=== PATIENT | female | born 1995 | race Caucasian/White ===

== ENCOUNTER 2020-04-01 22:44 | Emergency (ER) | payer BC, OTHER ==
[2020-04-01] MEDS ORDERED: NA CHLORIDE 0.9% 1,000 ML ONE (23:28)
[2020-04-01 23:30] LABS: Urine Blood 2+ (NEG); Urine Glucose NEGATIVE (NEG); Urine Protein NEGATIVE (NEG); Urine Specific Gravity >1.030 (1.005-1.030)
[2020-04-01 23:34] LABS: Absolute Lymphocytes (CBC) 3.5 K/uL (0.7-4.9); Basophils % 0.9 % (0-1.3); Hematocrit 38.8 % (36.0-45.0); Lymphocytes % 33.2 % (15.3-44.8); MPV 9.5 fL (7.6-11.3); RBC Red Blood Cell Count 4.62 M/uL (3.86-4.86)
[2020-04-02 00:08] LABS: BUN Blood Urea Nitrogen 9 mg/dL (7-18); Bicarbonate 29 mmol/L (21-32); Glucose Level 99 mg/dL (74-106); HCG, Quantitative 14554 mIU/mL (1-3); Potassium 3.7 mmol/L (3.5-5.1); Sodium Level 139 mmol/L (136-145)
--- NOTE | 2020-04-02 00:11 | EDPHYS ---
Physician Documentation [facility] Name: Roseline Roman Age: 24 yrs Sex: Female : 1995 Arrival Date: 04/01/2020 Time: 22:46 Bed 5 Private MD: Rosey Miguel ED Physician Kendell Beaver HPI: 04/01 23:54 This 24 yrs old Female presents to ER via Ambulatory with complaints of scotty Vaginal Bleeding, + Preg <12wks. 23:54 The patient presents to the emergency department with vaginal bleeding. The estimated [facility] gestational age is 4 weeks. course: care: none. Associated signs and symptoms: The patient has no apparent associated signs or symptoms. 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 - Social history:: Smoking status: Patient denies any tobacco usage or history of. ROS: 23:55 Constitutional: Negative for fever, chills, and weight loss, Eyes: Negative for injury, scotty pain, redness, and discharge, ENT: Negative for injury, pain, and discharge, Neck: Negative for injury, pain, and swelling, Cardiovascular: Negative for chest pain, palpitations, and edema, Respiratory: Negative for shortness of breath, cough, wheezing, and pleuritic chest pain, Abdomen/GI: Negative for abdominal pain, nausea, vomiting, diarrhea, and constipation, Back: Negative for injury and pain, MS/Extremity: Negative for injury and deformity, Skin: Negative for injury, rash, and discoloration, Neuro: Negative for headache, weakness, numbness, tingling, and seizure, Psych: Negative for depression, anxiety, suicide ideation, homicidal ideation, and hallucinations, Allergy/Immunology: Negative for hives, rash, and allergies, Endocrine: Negative for neck swelling, polydipsia, polyuria, polyphagia, and marked weight changes, Hematologic/Lymphatic: Negative for swollen nodes, abnormal bleeding, and unusual bruising. 23:55 : Positive for vaginal bleeding. Exam: 23:55 Constitutional: This is a well developed, well nourished patient who is awake, alert, scotty and in no acute distress. Head/Face: Normocephalic, atraumatic. Eyes: Pupils equal round and reactive to light, extra-ocular motions intact. Lids and lashes normal. Conjunctiva and sclera are non-icteric and not injected. Cornea within normal limits. Periorbital areas with no swelling, redness, or edema. ENT: Nares patent. No nasal discharge, no septal abnormalities noted. Tympanic membranes are normal and external auditory canals are clear. Oropharynx with no redness, swelling, or masses, exudates, or evidence of obstruction, uvula midline. Mucous membranes moist. Neck: Trachea midline, no thyromegaly or masses palpated, and no cervical lymphadenopathy. Supple, full range of motion without nuchal rigidity, or vertebral point tenderness. No Meningismus. Chest/axilla: Normal chest wall appearance and motion. Nontender with no deformity. No lesions are appreciated. Cardiovascular: Regular rate and rhythm with a normal S1 and S2. No gallops, murmurs, or rubs. Normal PMI, no JVD. No pulse deficits. Respiratory: Lungs have equal breath sounds bilaterally, clear to auscultation and percussion. No rales, rhonchi or wheezes noted. No increased work of breathing, no retractions or nasal flaring. Abdomen/GI: Soft, non-tender, with normal bowel sounds. No distension or tympany. No guarding or rebound. No evidence of tenderness throughout. Back: No spinal tenderness. No costovertebral tenderness. Full range of motion. Skin: Warm, dry with normal turgor. Normal color with no rashes, no lesions, and no evidence of cellulitis. MS/ Extremity: Pulses equal, no cyanosis. Neurovascular intact. Full, normal range of motion. Neuro: Awake and alert, GCS 15, oriented to person, place, time, and situation. Cranial nerves II-XII grossly intact. Motor strength 5/5 in all extremities. Sensory grossly intact. Cerebellar exam normal. Normal gait. Psych: Awake, alert, with orientation to person, place and time. Behavior, mood, and affect are within normal limits. Vital Signs: 23:03 BP 124 / 66; Pulse 94; Resp 18; Temp 98(TE); Pulse Ox 100% on R/A; Weight 123.38 kg lp1 (R); Height 5 ft. 6 in. (167.64 cm); Pain 01/07; 04/02 00:30 BP 122 / 72; Pulse 91; Resp 16 S; Temp 98.3(O); Pulse Ox 100% on R/A; bb 04/01 23:03 Body Mass Index 43.90 (123.38 kg, 167.64 cm) lp1 MDM: 04/01 23:08 Patient medically screened. [facility] 23:56 Differential diagnosis: threatened Ab, missed Ab. Data reviewed: vital signs, nurses [facility] notes, lab test result(s), radiologic studies, ultrasound. Data interpreted: quality assurance monitor body: rate is 94 beats/min, rhythm is regular. Counseling: I had a detailed discussion with the patient and/or guardian regarding: the historical points, exam findings, and any diagnostic results supporting the discharge/admit diagnosis, lab results, radiology results, the need for outpatient follow up, for definitive care, an OB/Gyne specialist. 04/01 23:10 Order name: Quantitative Hcg; Complete Time: 00:10 [facility] 04/01 23:10 Order name: Abo/rh Typing [facility] 04/01 23:10 Order name: Basic Metabolic Panel; Complete Time: 00:10 [facility] 04/01 23:10 Order name: CBC with Diff; Complete Time: 23:54 [facility] 04/01 23:10 Order name: Urine Culture [facility] 04/01 23:29 Order name: Urine Dipstick--Ancillary (enter results); Complete Time: 23:54 ar5 04/01 23:10 Order name: Urine Test (obtain specimen); Complete Time: 23:26 [facility] 04/01 23:10 Order name: IV Saline Lock; Complete Time: 23:44 [facility] 04/01 23:10 Order name: Labs collected and sent; Complete Time: 23:44 [facility] 04/01 23:10 Order name: NPO; Complete Time: 23:44 [facility] 04/01 23:10 Order name: Urine Dipstick-Ancillary (obtain specimen); Complete Time: 23:26 [facility] 04/01 23:10 Order name: US Transvaginal Ob [facility] 04/01 23:29 Order name: Urine --Ancillary (enter results); Complete Time: 23:54 ar5 Administered Medications: 23:40 Drug: NS 0.9% 1000 ml Route: IV; Rate: 1 bolus; Site: right antecubital; lp1 04/02 00:30 Follow up: IV Status: Order to discontinue infusion; IV Intake: 100ml bb Disposition: 04/02/20 00:10 Discharged to Home. Impression: Threatened . - Condition is Stable. - Discharge Instructions: Threatened Miscarriage, Vaginal Bleeding During , First Trimester, First Trimester of , [id number], First Trimester of , Threatened Miscarriage, [id number]-[id number], Pelvic Rest. - Prescriptions for Vitamin 27- 0.8 mg Oral Tablet - take 1 tablet by ORAL route once daily; 30 tablet. - Medication Reconciliation Form, Thank You Letter, Antibiotic Education, Prescription Opioid Use form. - Follow up: Rosey Miguel; When: 2 - 3 days; Reason: Recheck today's complaints, Continuance of care, Re-evaluation by your physician. Follow up: Michael Zuleta; When: 2 - 3 days; Reason: Recheck today's complaints, Re-evaluation by your physician. - Problem is new. - Symptoms have improved. Signatures: Dispatcher [employer] EDKS Kendell Beaver MD MD cha Ballard, Brenda RN RN bb Patricia Juarez RN RN lp1 Corrections: (The following items were deleted from the chart) 00:32 00:10 04/02/2020 00:10 Discharged to Home. Impression: Threatened . Condition bb is Stable. Discharge Instructions: Threatened Miscarriage, Vaginal Bleeding During , First Trimester, First Trimester of , Mhsq-da-Jlam, First Trimester of , Threatened Miscarriage, Xnlc-rq-Char, Pelvic Rest. Prescriptions for Vitamin 27-0.8 mg Oral Tablet - take 1 tablet by ORAL route once daily; 30 tablet. and Forms are Medication Reconciliation Form, Thank You Letter, Antibiotic Education, Prescription Opioid Use. Follow up: Rosey Miguel; When: 2 - 3 days; Reason: Recheck today's complaints, Continuance of care, Re-evaluation by your physician. Follow up: Michael Zuleta; When: 2 - 3 days; Reason: Recheck today's complaints, Re-evaluation by your physician. Problem is new. Symptoms have improved. scotty
--- NOTE | 2020-04-02 00:11 | ER ---
Nurse's Notes [facility] Name: Roseline Roman Age: 24 yrs Sex: Female : 1995 Arrival Date: 04/01/2020 Time: 22:46 Bed 5 Private MD: Rosey Miguel Diagnosis: Threatened Presentation: 04/01 23:03 Chief complaint: Patient states: Vaginal bleeding that began 1 hour ago with pelvic lp1 cramping; States unknown gestation of , ultrasound on 04/29/20 was abnormal per patient, scheduled for blood work tomorrow morning. Coronavirus screen: Client denies travel out of the [place] in the last 14 days. At this time, the client does not indicate any symptoms associated with coronavirus-19. Ebola Screen: No symptoms or risks identified at this time. Initial Sepsis Screen: Does the patient meet any 2 criteria? No. Patient's initial sepsis screen is negative. Does the patient have a suspected source of infection? No. Patient's initial sepsis screen is negative. Risk Assessment: Do you want to hurt yourself or someone else? Patient reports no desire to harm self or others. Onset of symptoms was April 01, 2020 at 22:00. 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 - Social history:: Smoking status: Patient denies any tobacco usage or history of. Screenin:09 Abuse screen: Denies threats or abuse. Denies injuries from another. Nutritional lp1 screening: No deficits noted. Tuberculosis screening: No symptoms or risk factors identified. Fall Risk None identified. Assessment: 23:07 Obstetrical Assessment: General assessment: awake and alert, skin warm and dry, Patient lp1 reports abdominal cramping. General: Appears in no apparent distress. Behavior is calm, cooperative, appropriate for age. Pain: Complains of pain in suprapubic area Pain currently is 6 out of 10 on a pain scale. Neuro: Level of Consciousness is awake, alert, obeys commands. Cardiovascular: Patient's skin is warm and dry. Respiratory: Respiratory effort is even, unlabored. GI: Abdomen is non-distended, Reports lower abdominal pain. : Reports vaginal bleeding that is bright red, light flow. EENT: No signs and/or symptoms were reported regarding the EENT system. Derm: Skin is pink, warm \T\ dry. Musculoskeletal: No deficits noted. 23:36 Reassessment: Ultrasound at bedside. lp1 04/02 00:29 Reassessment: Patient is alert, oriented x 3, equal unlabored respirations, skin bb warm/dry/pink. pt verbalized understanding of and agrees to plan of care discharge instructions given pt ambulated with steady gait to exit accompanied by family. Vital Signs: 04/01 23:03 BP 124 / 66; Pulse 94; Resp 18; Temp 98(TE); Pulse Ox 100% on R/A; Weight 123.38 kg lp1 (R); Height 5 ft. 6 in. (167.64 cm); Pain 7/10; 10 00:30 BP 122 / 72; Pulse 91; Resp 16 S; Temp 98.3(O); Pulse Ox 100% on R/A; bb 04/01 23:03 Body Mass Index 43.90 (123.38 kg, 167.64 cm) lp1 Vitals: 00:31 Heart Tones no heart tones determined by field service technician. bb ED Course: 04/01 22:46 Patient arrived in ED. am2 22:47 Rosey Miguel MD is Private Physician. am2 23:03 Patricia Juarez, JAVIER is Primary Nurse. lp1 23:05 Triage completed. lp1 23:05 Arm band placed on. lp1 23:08 Kendell Beaver MD is Attending Physician. scotty 23:09 Patient has correct armband on for positive identification. Placed in gown. lp1 23:30 Inserted saline lock: 20 gauge in right antecubital area, using aseptic technique. oe Blood collected. 23:44 US Transvaginal Ob In Process Unspecified. EDMS 04/02 00:10 Rosey Miguel MD is Referral Physician. [facility] 00:10 Michael Zuleta MD is Referral Physician. [facility] 00:30 IV discontinued, intact, bleeding controlled, No redness/swelling at site. Pressure bb dressing applied. 00:31 No provider procedures requiring assistance completed. bb Administered Medications: 04/01 23:40 Drug: NS 0.9% 1000 ml Route: IV; Rate: 1 bolus; Site: right antecubital; lp1 04/02 00:30 Follow up: IV Status: Order to discontinue infusion; IV Intake: 100ml bb Intake: 00:30 IV: 100ml; Total: 100ml. bb Outcome: 00:10 Discharge ordered by . [facility] 00:31 Discharged to home ambulatory, with family. bb 00:31 Condition: stable 00:31 Discharge instructions given to patient, Instructed on discharge instructions, follow up and referral plans. medication usage, Demonstrated understanding of instructions, follow-up care, medications, Prescriptions given X 1. 00:32 Patient left the ED. bb Signatures: Dispatcher [employer] EDOK Kendell Beaver MD MD cha Ballard, Brenda RN RN bb Patricia Juarez, RN RN lp1 Srikanth Villafana Amanda am2
[2020-04-02 01:09] VITALS: O2SAT 100
[2020-04-02 01:10] VITALS: BP 122/72; TEMP 98.3
--- NOTE | 2020-04-02 10:33 | RAD REPORT ---
EXAM DESCRIPTION: US - Transvaginal OB - 04/01/2020 11:44 pm CLINICAL HISTORY: with pelvic pain COMPARISON: None. FINDINGS: The uterus measures 11 x 6 x 6 centimeters. A gestational sac measuring 1.2 centimeters i s present within the uterine body. A pole is not seen. A small subchorionic bleed is present. Right and left ovary not visualized secondary to overlying bowel gas. Right and left adnexal unremark able No significant free fluid is seen. IMPRESSION: Intrauterine with an estimated gestational age 6 weeks 4 days SISSY 11/23/2020 The gestational sac lies within the uterine body. It is recommended that the patient have a followup endovaginal sonogram in 1 week for re-evaluation Small subchorionic bleed
--- OUTSIDE RECORDS SUMMARY | 2020-04-06 22:13 | XMS REPORT | Summary of Care ---
:1995 Author Organization [facility] - Health Address [address] [place] [id number] Care Team Providers Name Role Phone Rickey Roche Unavailable Rickey Roche Primary Care Provider Encounter Details Date Type Department Care Team Description 03/15/2020 Orders Only [facility] Doctor Unassigned, No [address] [facility] [place] [address] [address] [place] [address] Allergies No Known Allergiesdocumented as of this encounter (statuses as of 03/15/2020) Medications No known medicationsdocumented as of this encounter (statuses as of 03/15/2020) Active Problems Not on filedocumented as of this encounter (statuses as of 03/15/2020) Social History Tobacco Use Types Packs/Day Years Used Date Former Smoker Cigarettes 07/01/2012 - 0 07/01/2013 Sex Assigned at Date Recorded Not on file COVID-19 Exposure Response Date Recorded In the last month, have you been in contact with No / Unsure 03/15/2020 1:52 PM CDT someone who was confirmed or suspected to have Coronavirus / COVID-19? documented as of this encounter Last Filed Vital Signs Not on filedocumented in this encounter Plan of Treatment Date Type Specialty Care Team Description 03/15/2020 Initial Obstetrics & Munoz, Marley Delvalle MD Visit Gynecology [address] [place] [address] [address] [place] [address] Health Maintenance Due Date Last Done Comments VARICELLA VACCINES (/13/1996 2-dose childhood series) HPV VACCINES (1 - 2-dose series) 2005 Depression Screening 2006 DTaP,Tdap,and Td Vaccines (1 - 2013 Tdap) PAP SMEAR 2015 INFLUENZA VACCINE (#1) 2020 PNEUMOCOCCAL 0-64 YEARS COMBINED Aged Out No longer eligible based on SERIES patient's age to complete this topic documented as of this encounter Procedures Procedure Name Priority Date/Time Associated Diagnosis Comme nts ASSIGNMENT OF BENEFITS Routine 03/15/2020 1:56 PM CDT documented in this encounter Results Not on filedocumented in this encounter Insurance Payer Benefit Plan Subscriber ID Effective Dates Phone Address Type / Group BCBS [facility] [id number] 2016-Alfredo [phone] [address] [place] PPO/POS [place] - OUT OF t 7 [id number] [place] [address] documented as of this encounter Advance Directives Name Relationship Healthcare Agent Relationship Co mmunication Mike Worthy Other Health Care Agent
--- OUTSIDE RECORDS SUMMARY | 2020-04-06 22:13 | XMS REPORT | Continuity of Care Document ---
:[address] [facility] t Address [address] [place] [address] Care Team Providers Name Role Phone Mook Munoz MD Attending Clinician Doctor Unassigned, Name Attending Clinician Unavailable Problems Condition Condition Condition Status Onset Resolution Last Treating Co mments Source Name Details Category Date Date Treatment Clinician Date Anxiety Anxiety Problem Active [facility] Major Major Problem Active [facility] depressive depressive Marita kes - disorder, disorder, [facility] single single l episode, episode, Outpat i unspecifie unspecifie en t d d Clinics Seasonal Seasonal Problem Active [facility] allergies allergies [facility] Bipolar Bipolar Problem Active [facility] disorder [facility] Acute Acute Problem Active [facility] sinusitis, sinusitis, Marita kes - unspecifie unspecifie Me moria d d l [facility] ent Clinics Other Other Problem Active [facility] specified specified Luke s - bacterial bacterial Freeman clare agents as agents as l the cause the cause Outp ati of of ent diseases diseases Clinic s classified classified elsewhere elsewhere Body mass Body mass Problem Active [facility] index index Lukes - (BMI) of (BMI) of Memori a 40.1 to 40.1 to l 44.9 in 44.9 in [facility] adult adult ent Clinics Allergies, Adverse Reactions, Alerts This patient has no known allergies or adverse reactions. Medications Ordered Filled Start Stop Current Ordering Indication Dosage Frequency Signature Comments Components Source Medication Medication Date Date Medication? Clinician (SIG) Name Name Zoloft Zoloft Yes Na Miguel [address] [facility] Procedures This patient has no known procedures. Encounters Start End Encounter Admission Attending Care Care Encounter Source Date/Time Date/Time Type Type Clinicians Facility Department ID 2020-03-30 2020-03-30 Routine Marley Munoz [facility] [id number] 16:06:37 17:18:58 Cam Moshe [id number] Visit [place] [id number] Professio [id number] [address] 2020-03-30 2020-03-30 Orders Doctor MYKEL [id number] 00:00:00 00:00:00 Only Unassigned, DEDE [id number] [facility] [id number] 2020-03-18 2020-03-18 Telephone Marley Munoz [facility] [id number] 00:00:00 00:00:00 [place] [id number] [place] [id number] Professio [id number] [address] 2019-09-01 2019-09-01 [facility] [id number] 10:00:00 10:00:00 [place] [facility] 2019-01-12 2019-01-12 [facility] [id number] 15:20:00 15:20:00 [facility] [employer] [facility] Outpati ent Clinics 2018-09-23 2018-09-23 [facility] [id number] [facility] 15:15:00 15:15:00 [facility] [employer] [facility] Outpat[facility] ent Clinics 2018-06-11 2018-06-11 [facility] [id number] 14:45:00 14:45:00 [facility] [employer] [facility] Results This patient has no known results.
--- OUTSIDE RECORDS SUMMARY | 2020-04-06 22:13 | XMS REPORT | Summary of Care ---
:1995 Author Organization [facility] - Health Address [address] [place] [id number] Care Team Providers Name Role Phone Rickey Roche Unavailable Rickey Roche Primary Care Provider Reason for Visit Reason Comments New OB Visit POSITIVE HOME TEST Encounter Details Date Type Department Care Team Description 03/15/2020 Initial [facility]oz, Marley Olmos am, MD [address] [place] [address] [id number] Visit Healthcare- Emi Enamorado PA-C [address] [place] [phone] examination or test, [place] positive result [address] [place] [address] (Primary D x) [facility], [address] [place] [address] Allergies No Known Allergiesdocumented as of this encounter (statuses as of 03/15/2020) Medications Medication Sig Dispensed Refills Start Date End Date Status sertraline HCl Take 50 mg by 0 A ctive (SERTRALINE ORAL) mouth. Take by mouth. 0 Acti ve vit,calc76/iron/folic (PNV 29-1 ORAL) documented as of this encounter (statuses as of 03/15/2020) Active Problems Problem Noted Date Morbid obesity with body mass index of 40.0-49.9 03/15 Comments Yes documented as of this encounter (statuses as of 03/15/2020) Social History Tobacco Use Types Packs/Day Years Used Date Former Smoker Cigarettes 07/01/2012 - 0 07/01/2013 Smokeless Tobacco: Never Used Alcohol Use Drinks/Week oz/Week Comments Not Currently Comments Yes Sex Assigned at Date Recorded Not on file COVID-19 Exposure Response Date Recorded In the last month, have you been in contact with No / Unsure 03/15/2020 1:52 PM CDT someone who was confirmed or suspected to have Coronavirus / COVID-19? documented as of this encounter Last Filed Vital Signs Vital Sign Reading Time Taken Comments Blood Pressure 129/88 03/15/2020 2:14 PM CDT Pulse 99 03/15/2020 2:11 PM CDT Temperature 37.1 C (98.7 F) 03/15/2020 2:11 PM CDT Respiratory Rate 18 03/15/2020 2:11 PM CDT Oxygen Saturation - - Inhaled Oxygen Concentration - - Weight 122 kg (269 lb) 03/15/2020 2:11 PM CDT Height 165.1 cm (5' 5") 03/15/2020 2:11 PM CDT Body Mass Index 44.76 03/15/2020 2:11 PM CDT documented in this encounter Progress Notes Emi Enamorado PA-C - 03/15/2020 2:00 PM CDT Chief complaint: Chief Complaint Patient presents with New OB Visit POSITIVE HOME TEST HPI Roseline Carranza is a 24 year old female coming to est care after having a positive test at home. She has no complaints and reports is doing well. Patient denies any abnormal/pelvic pain, discharge, dysuria, hematuria, abnormal bleeding. Patient reports she tested UPT on 02/26 andit was positive. Patient has unknown LMP due to recently getting nexplanon removed on 12/30/2019. Patient reports this was a planned . Histories OB History Para Term AB Living 3 2 2 2 SAB TAB Ectopic Multiple Live Births 2 # Outcome Date GA Lbr Bentley/2nd Weight Sex Delivery Anes PTL Lv 3 Current 2 Term 07/03/17 6 lb 4 oz (2.835 kg) M Vag-Spont MIGUEL 1 Term 03/30/16 8 lb 2 oz (3.685 kg) M Vag-Spont MIGUEL Past Medical History: Diagnosis Date Anxiety Depression Family History Problem Relation Age of Onset Breast Cancer Maternal Grandmother Colon Cancer Maternal Grandmother Family Status Relation Name Status Mo Alive Fa Alive MGMo (Not Specified) History reviewed. No pertinent surgical history. Social History Socioeconomic History Marital status: Single Spouse name: Not on file Number of children: Not on file Years of education: Not on file Highest education level: Not on file Occupational History Not on file Social Needs Financial resource strain: Not on file Food insecurity Worry: Not on file Inability: Not on file Transportation needs Medical: Not on file Non-medical: Not on file Tobacco Use Smoking status: Former Smoker Types: Cigarettes Start date: 07/01/2012 Quit date: 07/01/2013 Years since quittin.7 Smokeless tobacco: Never Used Substance and Sexual Activity Alcohol use: Not Currently Drug use: Never Sexual activity: Yes Partners: Male control/protection: None Lifestyle Physical activity Days per week: Not on file Minutes per session: Not on file Stress: Not on file Relationships Social connections Talks on phone: Not on file Gets together: Not on file Attends scientology service: Not on file Active member of club or organization: Not on file Attends meetings of clubs or organizations: Not on file Relationship status: Not on file Intimate partner violence Fear of current or ex partner: Not on file Emotionally abused: Not on file Physically abused: Not on file Forced sexual activity: Not on file Other Topics Concern Not on file Social History Narrative Not on file Social History Substance and Sexual Activity Sexual Activity Yes Partners: Male control/protection: None Genetic Screen Autism / Mental Retardation: No Zhou Disease: No Congenital Heart Defect: (!) Yes(cousin maternal) Cystic Fibrosis: No Down Syndrome: No Familial Dysautonomia: No Hemophilia or other Blood Disorders: No Kleberg Chorea: No Maternal Metabolic Disorder--specify (eg. Type 1 Diabetes, PKU): No Muscular Dystrophy: No Neural Tube Defect: No Recurrent Loss or a Stillbirth: No Sickle Cell Disease or Trait: No Clarence Sachs: No Teratological Substances (specify type & strength/dose) since LMP: No Thalassemia: No Other Inherited Genetic or Chromosomal Disorder (specify): No Defects Not Listed (specify): (Cousin, turners syndrome) Labs none Radiology none Allergies Roseline has No Known Allergies. Medications Roseline has a current medication list which includes the following prescription(s): vit,calc76/iron/folic and sertraline hcl. Review of Systems Constitutional: Negative for appetite change, fatigue, fever, unexpected weight change, weight gain and weight loss. HENT: Negative for rhinorrhea and sore throat. Eyes: Negative for pain and itching. Respiratory: Negative for cough, chest tightness and shortness of breath. Breasts: Negative for discharge, mass and pain. Cardiovascular: Negative for chest pain, palpitations and leg swelling. Gastrointestinal: Negative for abdominal pain, constipation, diarrhea and nausea. Genitourinary: Negative for bladder incontinence, dysuria, vaginal discharge, difficulty urinating, vaginal pain and pelvic pain. Musculoskeletal: Negative for gait problem and myalgias. Skin: Negative for rash. Neurological: Negative for dizziness and headaches. Psychiatric/Behavioral: Negative for suicidal ideas. The patient is not nervous/anxious. Endocrine: Negative for hair loss, weight gain and weight loss. BP 129/88 | Pulse 99 | Temp 37.1 C (98.7 F) (Oral) | Resp 18 | Ht 5' 5" (1.651 m) | Wt 269 lb (122 kg) | BMI 44.76 kg/m Pregravid BMI: Could not be calculated Physical Exam Vitals reviewed. Constitutional: She is oriented to person, place, and time. Her body habitus is obese. Neck: No mass. No thyromegaly palpated. No neck adenopathy. Cardiovascular: Regular rate and rhythm. Pulmonary/Chest: Normal inspiratory effort. Abdominal: Abdomen is soft. No tenderness present. No hernia palpated or inspected. Neuro/Psychiatric: She has a normal mood and affect. She is oriented to person, place, and time. Skin: Skin normal. Lymphadenopathy: No neck adenopathy present. No axillary adenopathy present. No inguinal adenopathy present. Breast: Right breast exhibits no mass, no nipple discharge and no tenderness. Left breast exhibits no mass, no nipple discharge and no tenderness. Breasts are symmetrical. Normal left breast and normalright breast External genitalia: Normal external genitalia appropriate for age. Urethral meatus: Normal urethral meatus Urethra: Normal urethra. Bladder: No tenderness. Normal bladder Vagina:Normal vagina. No lesion inspected. No abnormal vaginal discharge found. No lesions in thevagina. Cervix: Normal cervix. No lesion. No tenderness and no discharge present. Uterus: Uterus is non-tender. Normal uterus Adnexa: Right adnexa without tenderness. Left adnexa without tenderness. Normal left adnexa and normal right adnexa Anus/perineum: Normal perineum and normal anus. Assessment/Plan SEE OB SUMMARY Return to clinic in 2 weeks. Discussed treatment options. Reviewed patient instructions and provided printed copy. Activity restrictions: As tolerated This visit did not involve counseling and coordination that comprised more than 50% of the visit time. Emi Enamorado PA-C 03/15/2020 2:57 PM documented in this encounter Miscellaneous Notes OB Summary Note - Da Moe - 03/15/2020 2:00 PM CDTAge: 24 year old GA: Unknown Patient reports had nexplanon removed on December 30, 2019. Patient reports has not had a normal mensesyet. Patient reports she took a testing on 02/27/2020 and states it was positive. Patient had last pap smear with Dr. Johnson in in 2018 and it was normal. Patient denies hx of abnormal pap smear. Patient is and reports all normal deliveries. Patient denies any complications. Serial BHCG ordered today. No complaints. Discussed do's and don'ts of , safe foods, safe medications. Reviewed Zika virus precautions. I discussed the call schedule and that Dr. Munoz might not be the physician delivering her. Expectations for weight gain this include 15-25 pounds. Patient in interested in /bottlefeeding. Encouraged to call if have any additional questions or concerns. Interested in panorama/horizon testing. Patient to RTC in [address] wk [address] US [address] Dr. Munoz. Discussed about COVID-19/flu precautions. Social distancing, frequent hand washings, wearing face mask, signs/symptoms for testing and to follow CDC recommendations discussed. documented in this encounter Plan of Treatment Date Type Specialty Care Team Description 03/30/2020 Routine Obstetrics & Alexander, Marley Delvalle MD Visit Gynecology [address] [place] [address] DR. [address] [place] [id number] [phone] Name Type Priority Associated Diagnoses Order S chedule HCG, QUANTITATIVE, LAB Routine examination or 48 hours for 3 test, positive result Occurr ences starting 03/15/2020 unti l 04/14/2020 Health Maintenance Due Date Last Done Comments VARICELLA VACCINES (1 of 2 - 1995 2-dose childhood series) HPV VACCINES (1 - 2-dose series) 2005 Depression Screening 2006 DTaP,Tdap,and Td Vaccines (1 - 2013 Tdap) PAP SMEAR 2015 INFLUENZA VACCINE (#1) 2020 PNEUMOCOCCAL 0-64 YEARS COMBINED Aged Out No longer eligible based on SERIES patient's age to complete this topic documented as of this encounter Results Not on filedocumented in this encounter Visit Diagnoses Diagnosis examination or test, positive result - Primary documented in this encounter Insurance Payer Benefit Plan Subscriber ID Effective Dates Phone Address Type / Group BCBS [facility] [id number] 2016-Alfredo [phone] [address] [place] PPO/POS [place] - OUT OF [id number] [place] [address] documented as of this encounter Advance Directives Name Relationship Healthcare Agent Relationship Co mmunication Mike Worthy Other Health Care Agent
--- OUTSIDE RECORDS SUMMARY | 2020-04-06 22:14 | XMS REPORT | Summary of Care ---
:1994 Author Organization [facility] Address [address] [place] [address] Care Team Providers Name Role Phone Rickey Roche Unavailable Rickey Roche Primary Care Provider Reason for Visit Reason Comments Medical Records Encounter Details Date Type Department Care Team Description 03/18/2020 Telephone [facility] Women's MunozMarley MD Medical Records Healthcare- [address] [address] [address] [place] [address] [place] [address] [phone] Allergies No Known Allergiesdocumented as of this encounter (statuses as of 03/23/2020) Medications Medication Sig Dispensed Refills Start Date End Date Status sertraline HCl Take 50 mg by 0 A ctive (SERTRALINE ORAL) mouth. Take by mouth. 0 Acti ve vit,calc76/iron/folic (PNV 29-1 ORAL) documented as of this encounter (statuses as of 03/23/2020) Active Problems Problem Noted Date Morbid obesity with body mass index of 40.0-49.9 03/15 Comments Yes documented as of this encounter (statuses as of 03/23/2020) Social History Tobacco Use Types Packs/Day Years [...] Signs Not on filedocumented in this encounter Miscellaneous Notes Telephone Encounter - Emi Enamorado PA-C - 03/23/2020 2:49 PM CDTMIRENA IUD removed on 12/26/2017 Nexplanon insertion on 12/27/2017 Discharge summary from [facility] on 07/03/17 Patient delivered male at 39w3d. apgars 9 and 10. Epidural anesthesia, no episiotomy, no laceration, schultze delivery of placenta, rh positive, immune to rubella, negative GBS. Op report on 07/03/17 Labor induction, rupture of membranes, clear fluid. Spontaneous vaginal delivery. Final DX: term IUP at 39w3d vaginal delivery, epidural anesthesia. USG done on 04/17/17 Single cephalic gestation with an EGA of 27w1d and an COMFORT of 07/16/2017. No gross abnormalities. Grade 1 anterior placenta. Labs done on 05/2017 HIV-neg HEP B-neg USG done on 05/27/17 Single cephalic gestational with ega of 32 wks 4 d and comfort of 07/18/2017. Appropriate interval growth. AF volume wnl. USG done on 04/17/17 Single cephalic gestation with EGA 27 w 1 d and COMFORT 07/16/2017. Grade 1 anterior placenta. USG done on 01/23/17 Single gestation with an EGA of 15w5d and an comfort of 07/12/2017, AF volume normal. Labs done on 01/03/2017 Progenity- NEGATIVE for CF and patient is not a carrier for CFTR mutations. 11/2016 Panorama- low risk male Telephone Encounter - Deborah Herrera - 03/18/2020 1:53 PM CDTReceived fax, medical records from Dr Michael Zuleta, placed on Dr Munoz's desk, documented in this encounter Plan of Treatment Date Type Specialty Care Team Description 03/30/2020 Routine Obstetrics & Munoz, Marley Delvalle MD Visit Gynecology [address] [place] [address] DR. Mahajan [place], [place] [address] [phone] Health Maintenance Due Date Last Done Comments [...] Dates Phone Address Type / Group BCBS [facility] [id number] 2016-Alfredo [phone] [address] PPO/POS [place] - OUT OF t 7 [id number] [place] [address] documented as of this encounter Advance Directives Name Relationship Healthcare Agent Relationship Co mmunication Mike Worthy Other Health Care Agent
--- OUTSIDE RECORDS SUMMARY | 2020-04-06 22:14 | XMS REPORT | Summary of Care ---
:1994 Author Organization [facility] - [facility] Address [address] [place] [address] Care Team Providers Name Role Phone Rickey Roche Unavailable Rickey Roche Primary Care Provider Reason for Visit Reason Comments ULTRASOUND MISSED MENSES POSITIVE HOME TEST 02/27/20 Encounter Details Date Type Department Care Team Description 03/30/[address] [facility] Women's MunozMarley am, MD Threatened miscarriage (Primary Dx); Visit Healthcare- [address] [place] [address] examination or test, positive result [facility] [address] [place] [address], [address] [place] [phone] Allergies No Known Allergiesdocumented as of this encounter (statuses as of 03/30/2020) Medications Medication Sig Dispensed Refills Start Date End Date Status sertraline HCl Take 50 mg by 0 A ctive (SERTRALINE ORAL) mouth. Take by mouth. 0 Acti ve vit,calc76/iron/folic (PNV 29-1 ORAL) documented as of this encounter (statuses as of 03/30/2020) Active Problems Problem Noted Date Morbid obesity with body mass index of 40.0-49.9 03/15 Comments Yes documented as of this encounter (statuses as of 03/30/2020) Social History Tobacco Use Types Packs/Day Years Used Date Former Smoker Cigarettes 07/01/2012 - 0 07/01/2013 Smokeless Tobacco: Never Used Alcohol Use Drinks/Week oz/Week Comments Not Currently Comments Yes Sex Assigned at Date Recorded Not on file COVID-19 Exposure Response Date Recorded In the last month, have you been in contact with No / Unsure 03/30/2020 4:02 PM CDT someone who was confirmed or suspected to have Coronavirus / COVID-19? documented as of this encounter Last Filed Vital Signs Vital Sign Reading Time Taken Comments Blood Pressure 128/82 03/30/2020 4:47 PM CDT Pulse 89 03/30/2020 4:47 PM CDT Temperature 36.8 C (98.3 F) 03/30/2020 4:47 PM CDT Respiratory Rate 20 03/30/2020 4:47 PM CDT Oxygen Saturation - - Inhaled Oxygen Concentration - - Weight 123.4 kg (272 lb) 03/30/2020 4:47 PM CDT Height 167.6 cm (5' 6") 03/30/2020 4:47 PM CDT Body Mass Index 43.9 03/30/2020 4:47 PM CDT documented in this encounter Progress Notes Alycia De Luna MA - 03/30/2020 4:15 PM CDTPer , patient need clean catch urine for Urine culture. Patient refused to give clean catch. No urine culture sent. Alycia De Luna MA 03/30/2020 5:10 PM am, Marley Delvalle MD - 03/30/2020 4:15 PM CDT Chief complaint: Chief Complaint Patient presents with ULTRASOUND MISSED MENSES POSITIVE HOME TEST 02/27/20 HPI Roseline Carranza is a 24 year old female @ Unknown here for USG. Patient reports vaginal spotting this morning. Denies intercourse. Mild midline cramping. Have not done serial Beta-HCG as instructed due to work schedule. Histories OB History Para Term AB Living [...] history. Social History Socioeconomic History Marital status: Spouse name: Not on file Number of [...] file Gets together: Not on file Attends adventist service: Not on file Active member of [...] Sexual Activity Yes Partners: Male control/protection: None Labs No new labs Radiology No new radiology. Allergies Roseline has No Known Allergies. Medications Roseline has a current medication list which includes the following prescription(s): vit,calc76/iron/folic and sertraline hcl. Review of Systems Constitutional: Negative for chills, fatigue and fever. HENT: Negative for congestion, rhinorrhea, sneezing and sore throat. Eyes: Negative for photophobia and visual disturbance. Respiratory: Negative for cough, chest tightness, shortness of breath and wheezing. Cardiovascular: Negative for chest pain and palpitations. Gastrointestinal: Negative for abdominal distention, abdominal pain, constipation, diarrhea, nausea and vomiting. Genitourinary: Positive for vaginal bleeding. Negative for dysuria, urgency, frequency and vaginal discharge. Skin: Negative for rash. Neurological: Negative for syncope and headaches. Hematological: Does not bruise/bleed easily. BP 128/82 (BP Location: Right arm, Patient Position: Sitting) | Pulse 89 | Temp 36.8 C (98.3 F) (Oral) | Resp 20 | Ht 5' 6" (1.676 m) | Wt 272 lb (123.4 kg) | BMI 43.90 kg/m Pregravid BMI: Could not be calculated Physical Exam Vitals reviewed. Constitutional: She is oriented to person, place, and time. Her body habitus is obese. Cardiovascular: Regular rate and rhythm. Pulmonary/Chest: Normal inspiratory effort. Abdominal: Abdomen is soft. No tenderness present. No hernia palpated or inspected. Neuro/Psychiatric: She has a normal mood and affect. She is oriented to person, place, and time. Skin: Skin normal. No rash present. Vagina: No blood noted on USG probe Assessment/Plan Threatened miscarriage (primary encounter diagnosis) Comment: - Patient didn't do serial beta HCG due to work schedule -had vaginal spotting this morning. Denies ever needing Rhogam in previous pregnancies -Today USG: showed irregular sized gestational sac -Serial Beta HCG ordered again -Miscarriage precautions were discussed -Repeat USG in 1-2 wks pending lab results - RTC in 2-3 weeks Plan: HCG, QUANTITATIVE, , HCG, QUANTITATIVE, , US OB TRANSVAGINAL examination or test, positive result Plan: ADC / [facility] - DRUG SCREEN TRIAGE, GC & CHLAMYDIA AMPLIFIED ASSAY, POCT URINALYSIS W/O SPECIFIC GRAVITY, HCG, QUANTITATIVE, Return to clinic in 2-3 weeks. Discussed treatment options. Medications as ordered. Reviewed patient instructions and provided printed copy. Activity restrictions: As tolerated at Unknown This visit did not involve counseling and coordination that comprised more than 50% of the visit time. Scribe's Attestation I, Home Barraza , am scribing for, and in the presence of, Marley Munoz MD who performed the services described here-in. Home Barraza, March 30, 2020, 5:06 PM Physician's Attestation I have seen and examined the patient and agreed with the note above Marley Munoz MD 03/30/2020 6:11 PM documented in this encounter Miscellaneous Notes OB Summary Note - Home Barraza - 03/30/2020 4:15 PM CDT Age: [age] year old GA: Unknown Doing well Vaginal spotting in - Patient didn't do serial beta HCG due to work schedule -had vaginal spotting this morning. Denies ever needing Rhogam in previous pregnancies -Today USG: showed irregular sized gestational sac -Serial Beta HCG ordered again -Miscarriage precautions were discussed -Repeat USG in 1-2 wks pending lab results - RTC in 2-3 weeks Scribe's Attestation IHome , am scribing for, and in the presence of, Marley Munoz MD who performed the services described here-in. Home Barraza, March 30, 2020, 4:22 PM Physician's Attestation I have seen and examined the patient and agreed with the note above Marley Munoz MD 03/30/2020 6:08 PM documented in this encounter Plan of Treatment Date Type Specialty Care Team Description 04/02/2020 [employer] Visit Clinical Medical 1, [facility] Lab Laboratory 04/13/2020 [employer] Visit Phlebotomy 2, [facility] Lab 04/14/2020 Office Visit Obstetrics & Gynecology Shahid Munoz MD [address] [place] [address] [place] [address] [phone] Name Type Priority Associated Diagnoses Date/Ti me ADC / [facility] - DRUG SCREEN LAB Routine examina tion or 03/30/2020 4:55 PM CDT TRIAGE test, positive result GC & CHLAMYDIA LAB Routine examination or 0 03/30/2020 4:55 PM CDT AMPLIFIED ASSAY test, positive result Name Type Priority Associated Diagnoses Order S chedule HCG, QUANTITATIVE, LAB Routine examination or Expected: 03/30/2020, test, positive r esult Expires: 03/30/2021 Threatened miscarriage HCG, QUANTITATIVE, LAB Routine Threatened miscarriage 3 Occurrences starting 03/30/2020 unti l 04/29/2020 Health Maintenance Due Date Last Done Comments [...] Name Priority Date/Time Associated Diagnosis Comme nts US OB TRANSVAGINAL Routine 03/30/2020 6:06 Threatened Resul ts for this PM CDT miscarriage procedure are i n the results section. POCT URINALYSIS W/O Routine 03/30/2020 Results for this SPECIFIC GRAVITY examination or test, pro cedure are in positive result the results section. documented in this encounter Results US OB TRANSVAGINAL (03/30/2020 6:06 PM CDT) Specimen Narrative Performed At This result has an attachment that is no t available. Limited USG: Irregular shaped intrauterine gestational sac without yolk PACS sac or pole noted. Marley Munoz MD 03/30/2020 6:06 PM Performing Organization Address City/State/Zipcode Phone Number PACS POCT URINALYSIS W/O SPECIFIC GRAVITY (03/30/2020) Pathologist Sig nature POCT PH U na 5 - 8 mg/dl POCT U LEUK EST na Negative - Negative POCT U NIT na Negative - Negative POCT U PROT neg Negative - Negative POCT U GLU neg Negative - Negative POCT U KETONE na Negative - Negative POCT U BLD na Negative - Negative Specimen Urine - URINE, CLEAN CATCH documented in this encounter Visit Diagnoses Diagnosis Threatened miscarriage - Primary Threatened , unspecified as to e pisode of care examination or test, positive result documented in this encounter Insurance Payer Benefit Plan Subscriber ID Effective Dates Phone Address Type / Group BCBS OF [facility] [id number] 2016-Alfredo [phone] [address] PPO/POS [place] - OUT OF t 7 [id number] [place] [address] documented as of this encounter Advance Directives Name Relationship Healthcare Agent Relationship Co mmunication Mike Worthy Other Health Care Agent
--- OUTSIDE RECORDS SUMMARY | 2020-04-06 22:14 | XMS REPORT | Summary of Care ---
:1995 Author Organization [facility] Address [address] [place] [id number] Care Team Providers Name Role Phone Rickey Roche Unavailable Rickey Roche Primary Care Provider Reason for Visit Reason Comments Medical Records Encounter Details Date Type Department Care Team Description 03/18/2020 Telephone [facility] MunozMarley MD Medical Records Healthcare- [address] [address] [address] [place] [address] [place] [address] [phone] Allergies No Known Allergiesdocumented as of this encounter (statuses as of 03/21/2020) Medications Medication Sig Dispensed Refills Start Date End Date Status sertraline HCl Take 50 mg by 0 A ctive (SERTRALINE ORAL) mouth. Take by mouth. 0 Acti ve vit,calc76/iron/folic (PNV 29-1 ORAL) documented as of this encounter (statuses as of 03/21/2020) Active Problems Problem Noted Date Morbid obesity with body mass index of 40.0-49.9 03/15 Comments Yes documented as of this encounter (statuses as of 03/21/2020) Social History Tobacco Use Types Packs/Day Years [...] this encounter Miscellaneous Notes Telephone Encounter - Deborah Herrera - 03/18/2020 1:53 PM CDTReceived fax, medical records from Dr Michael Zuleta, placed on Dr Munoz's desk, documented in this encounter Plan of Treatment Date Type Specialty Care Team Description 03/30/2020 Routine Obstetrics & Marley Munoz MD Visit Gynecology [address] [place] [address] DR. Mahajan [place], [place] [address] [phone] Health Maintenance Due Date Last Done Comments [...] Effective Dates Phone Address Type / Group [facility] [id number] 2016-Alfredo [phone] [address] PPO/POS [place] - OUT OF t 7 [id number] [place] [address] documented as of this encounter Advance Directives Name Relationship Healthcare Agent Relationship Co mmunication Mike Worthy Other Health Care Agent
--- OUTSIDE RECORDS SUMMARY | 2020-04-06 22:14 | XMS REPORT | Summary of Care ---
:1995 Author Organization [facility] - Health Address [address] [place] [address] Care Team Providers Name Role Phone Rickey Roche Unavailable Rickey Roche Primary Care Provider Encounter Details Date Type Department Care Team Description 03/30/2020 Orders Only [facility] Doctor Unassigned, No [address] [facility] [place] [place] [address] [address] [place] [address] Allergies No Known Allergiesdocumented as of this [...] been in contact with No / Unsure 03/28/2020 7:44 PM CDT someone who was confirmed or suspected to have Coronavirus / COVID-19? documented as of this encounter Last Filed Vital Signs Not on filedocumented in this encounter Plan of Treatment Date Type Specialty Care Team Description 03/30/2020 Routine Obstetrics & Munoz, Marley Delvalle MD Visit Gynecology [address] [place] [address] DR. Mahajan [place], [place] [address] [phone] Health Maintenance Due Date Last Done Comments [...] Name Priority Date/Time Associated Diagnosis Comme nts EXTERNAL PROVIDER Routine 03/30/2020 12:01 AM CDT RECORDS documented in this encounter Results Not on filedocumented in this encounter Insurance Payer Benefit Plan Subscriber ID Effective Dates Phone Address Type / Group [employer] [facility] [id number] 2016-Alfredo [phone] [address] PPO/POS [place] - OUT OF t 7 [id number] [place] [address] documented as of this encounter Advance Directives Name Relationship Healthcare Agent Relationship Co mmunication Mike Worthy Other Health Care Agent
== END 2020-04-02 00:32 | disposition home or self-care (01) ==
LOC: ER 22:44
DX: O20.0 Threatened abortion (principal); O99.341 Other mental disorders complicating pregnancy, first trimester; F41.8 Other specified anxiety disorders; Z3A.01 Less than 8 weeks gestation of pregnancy
CPT/HCPCS: 87088; 85025; 87086; 80048; 36415; 86900; 81025; 86901; 84702; 81003; 76817; 96360; 99284; J7030

== ENCOUNTER 2022-01-15 09:28 | Day surgery (SDC) | payer BC, OTHER ==
[2022-01-11 15:33] LABS: Absolute Lymphocytes (CBC) 2.8 K/uL (0.7-4.9); Hematocrit 38.8 % (36.0-45.0); Lymphocytes % 35.7 % (15.3-44.8); MCV 78.6 fL (80-100); MPV 8.8 fL (7.6-11.3); RBC Red Blood Cell Count 4.94 M/uL (3.86-4.86)
[2022-01-11 15:48] LABS: SARS-CoV-2 Antigen Rapid Res Negative (Negative)
[2022-01-11 16:05] LABS: ALT/SGPT 29 U/L (12-78); AST/SGOT 14 U/L (15-37); Albumin 3.3 g/dL (3.4-5.0); Alkaline Phosphatase 61 U/L (45-117); Amylase 40 U/L (25-115); BUN Blood Urea Nitrogen 7 mg/dL (7-18); Bicarbonate 27 mmol/L (21-32); Bilirubin Total 0.2 mg/dL (0.2-1.0); Glomerular Filtration Rate 114 ml/min (=/>90); Glucose Level 102 mg/dL (74-106); Lipase 90 U/L (73-393); Protein, Total 7.6 g/dL (6.4-8.2); Sodium Level 139 mmol/L (136-145)
[2022-01-11 16:07] LABS: Bilirubin Direct < 0.1 mg/dL (0-0.2)
[2022-01-15] MEDS ORDERED: CEFOXITIN SODIUM 1 GM/VIAL ONE (09:40)
[2022-01-15] MEDS ORDERED: Ringers Lactate 1,000 ML IV ONE (09:40)
[2022-01-15] MEDS ORDERED: ACETAMINOPHEN 500 MG TAB ONE (09:50)
[2022-01-15] MEDS ORDERED: CELECOXIB 100 MG CAPSULE ONE (09:50)
[2022-01-15] MEDS ORDERED: propofoL 200 MG/20 ML VIAL IV ONE (09:57)
[2022-01-15] MEDS ORDERED: FENTANYL CITR 100 MCG/2 ML ONE (09:57)
[2022-01-15] MEDS ORDERED: ROCURONIUM 50 MG/5 ML VIAL IV ONE (09:58)
[2022-01-15] MEDS ORDERED: ONDANSETRON 4 MG/2 ML VIAL ONE ×2 (09:58→12:40)
[2022-01-15] MEDS ORDERED: MIDAZOLAM HCL 2 MG/2 ML INJ ONE (09:58)
[2022-01-15] MEDS ORDERED: LIDOCAINE 2% MPF 5 ML VIAL ONE (09:58)
[2022-01-15] MEDS ORDERED: dexAMETHasone 4 MG/ML VIAL ONE (10:38)
--- NOTE | 2022-01-15 11:03 | P.BOP ---
Preoperative diagnosis: symptomatic cholelithiasis, biliary dyskinesia, RUQ abd pain Postoperative diagnosis: same Primary procedure: Laparossopic cholecystectomy Industrial Millwright: Sirena Braswell (Antoine) Estimated blood loss: <10cc Specimen: gb Findings: as above Anesthesia: General Complications: None Transferred to: Recovery Room Condition: Good
[2022-01-15] MEDS ORDERED: Mastisol Adhesive Liq ONE (11:08)
[2022-01-15] MEDS ORDERED: NEOSTIGMINE 1 MG/ML -10 ML VIAL ONE (11:09)
[2022-01-15] MEDS ORDERED: GLYCOPYRROLATE 0.2 MG/ML SYR ONE ×2 (11:09)
[2022-01-15] MEDS ORDERED: KETOROLAC 30 MG/ML INJ ONE (11:15)
[2022-01-15] MEDS: HYDROMORPHONE HCL 1 MG/ML INJ ONE ×2 (11:37→11:43)
--- NOTE | 2022-01-15 12:30 | OP ---
Date of Procedure: 01/15/2022 Surgeon: Semaj Poon MD Watch And Clock Repairer: SUE Pruitt. Preoperative Diagnoses: Symptomatic cholelithiasis, biliary dyskinesia, right upper quadrant abdomin al pain. Postoperative Diagnoses: Symptomatic cholelithiasis, biliary dyskinesia, right upper quadrant abdomi nal pain. Procedure: Laparoscopic cholecystectomy Estimated Blood Loss: Less than 10 mL. Specimen: Gallbladder. Anesthesia: General plus local. Indication: This is the case of a 26-year-old patient, who comes to us with above diagnosis. Fully explained the benefits, alternatives, and risks of laparoscopic possible open cholecystectomy, which include, but not limited to infection, bleeding, damage to adjacent structures, anesthesia complicati on, choledocholithiasis, bile leak, pancreatitis, [place], and even . She also understands this may not relieve any symptoms. She might need more than one surgical intervention. She understood, yonatan d a consent. Procedure In Detail: The patient was brought to the operating room, placed in supine position. Anes thesia was induced without complication. Abdominal area was prepped and draped in the usual sterile fashion. Marcaine 0.5% was injected for local anesthetic followed by sharp incision of the skin in t he infraumbilical region. Incision was carried down to fascia, which was opened under direct vision. Peritoneum was encountered, opened under direct vision. Vicryl #1 placed inside the fascia. Hasso n trocar was carefully introduced. Pneumoperitoneum was obtained. I placed 3 more trocars, 5 mm eac h one of them in the epigastric right upper quadrant area under direct visualization. This allowed m e to put a grasper in the fundus of the gallbladder, another grasper in the infundibulum retracting t he gallbladder in the inferolateral fashion, exposing the triangle of Calot, and obtaining critical v iew. Cystic duct and cystic artery were clearly isolated, free circumferentially and a connection be tween those and the gallbladder were clearly identified. I proceeded to ligate those by using at gary st 3 clips proximal, 1 clip distal, ligation in middle. Same was done with the cystic artery. No bi le leak. No bleeding. The gallbladder was removed from liver using Bovie cauterizer and removed fro m abdominal cavity using an EndoCatch through the umbilical incision. The area was inspected once ag ain. No bile leak. No bleeding. At that moment, I proceeded to remove the trocars under direct vis ion. Deflated the pneumoperitoneum. Closed the fascia with #1 Vicryl. Irrigated subcutaneous tissu e, closed that with 3-0 chromic and skin in a subcuticular fashion with 3-0 chromic and Steri-Strips on top. Sponge count, instrument counts correct. The patient tolerated the procedure well. The pat ient was sent to recovery in stable condition. SHANNON/LIUDMILA Voice ID: [id number] Report ID: [id number]
--- NOTE | 2022-01-15 12:30 | DS ---
Diagnoses: Symptomatic cholelithiasis, biliary dyskinesia, right upper quadrant abdominal pain. Procedure: Laparoscopic cholecystectomy. Disposition: Home. Activity: As tolerated. No heavy lifting. Plan: Follow up in my office in 1 week. Call for appointment at [phone]. Keep area dry for 48 duc rs, then may shower. Keep Steri-Strip intact. Medications: Previously called. SHANNON/LIUDMILA Voice ID: [id number] Report ID: [id number]
[2022-01-15] MEDS ORDERED: CODEINE 30MG/APAP 300MG TAB ONE (12:36)
[2022-01-15 13:01] VITALS: BP 118/67; TEMP 97.1; O2SAT 98
[2022-01-15] MEDS ORDERED: PROMETHAZINE INJ 25 MG/ML AMP ONE (13:30)
[2022-01-15 16:12] LABS: Urine Specific Gravity/Preg >1.030 (1.005-1.030)
== END 2022-01-15 13:50 | disposition home or self-care (01) ==
LOC: OR 09:28
PROVIDERS: ATTEND Surgery
PROC: 0FT44ZZ Resection of Gallbladder, Percutaneous Endoscopic Approach (ICD-10-PCS; principal; 2022-01-15 11:15)
DX: K80.10 Calculus of gallbladder with chronic cholecystitis without obstruction (principal); R10.11 Right upper quadrant pain; K82.8 Other specified diseases of gallbladder; Z20.822 Contact with and (suspected) exposure to COVID-19
CPT/HCPCS: 85025; 80048; 36415; 82150; 81025; 80076; 88304; 83690; 87811; 47562; J2704; J1100; J2710; J2550; J2250; J3010; J1170; J7120; J0694; J2405 ×2